=== PATIENT | female | born 1975 | race Caucasian/White ===

== ENCOUNTER 2017-06-05 12:34 | Emergency (ER) | payer SELFPAY ==
[2017-06-05 12:39] VITALS: BP 142/96
--- NOTE | 2017-06-05 13:15 | DR.URIAD ---
HPI - Time Seen Time seen: 13:10 - PCP Primary Care Physician: LESLIE - HPI Comment HPI Comment: WORSE TODAY. - Complaint Chief Complaint Doctors Comments: GENERALIZE BODYACHES, HEADACHE, SORETHRAT AND DISRRHEA TIMES 4 DAYS. Chief Complaint:: PT. C/O SORE THROAT, HEADACHE, FEVER, BODY ACHES, & DIARRHEA. - Reviewed Nurses Notes Reviewed: Yes - Source History Provided: Patient - Mode of Arrival Mode of Arrival: Ambulatory - Timing Onset of Chief Complaint: 06/01/17 - Context Recent Treated Infections: None History of Respiratory: None - Quality Quality of Cough: Productive, Yellow Rhinorrhea: None Shortness of Breath: none - Associated Signs and Symptoms Other Signs and Symptoms: Cough, Diarrhea, Myalgias, Sore Throat PMH - PMH Past Medical History: Yes Past Medical History: Hypertension, Hyperthyroidism Past Medical History Comment: GRAVES DISEASE Past Surgical History: Yes Surgical History: Cholecystectomy, [employer] Surgery, Tonsillectomy Past Surgical History Comment: TUBAL LIGATION, D&C, TUMMY TUCK - Family History History of Family Medical Conditions: No - Social History Does patient currently use any type of tobacco product: Yes Have you used tobacco products in the last 12 months: Yes Type of Tobacco Use: Cigarettes Does any household member use tobacco: No Alcohol Use: None Do you use any recreational Drugs:: No Lives With: Alone Lives Where: Home - infectious screening In the last 2 months have you had wt loss of >10#?: NO Have you had fever, night sweats or hemotysis?: No Have you traveled outside the country in the last 6 months?: No Isolation: Standard ROS - Review of Systems Constitutional: Fever, Weakness, Fatigue. negative: Chills Eyes: negative: Eye Pain, Discharge ENTM: Nose Discharge, Nose Congestion, Throat Pain. negative: Ear Pain Respiratoy: Productive Cough, Short of Breath. negative: Wheezing, Hemoptysis Cardiovascular: No Symptoms Reported Gastrointestinal/Abdominal: Diarrhea Genitourinary: No Symptoms Reported Neurological: Headache Musculoskeletal: Muscle Pain Integumentary: No Symptoms Reported Hematologic/Lymphatic: No Symptoms Reported Endocrine: No Symptoms Reported All Other Systems: Reviewed and Negative PE - Vital Signs Vitals: Temperature 98.6 F Pulse Rate 98 Respiratory Rate 20 Blood Pressure 142/96 O2 Sat by Pulse Oximetry 100 - General Limitations: No Limitations General Appearance: Alert - Head Head Exam: Normal Inspection - Eyes Eye exam: Normal Appearance - ENT ENT Exam: Normal External Ear Exam External Ear Exam: Normal External Inspection TM/Canal Exam: Bilateral Bulging Nose Exam: Normal Nose Exam Mouth Exam: Normal Inspection Throat Exam: Tonsillar Erythema, Tonsillomegaly. negative: Tonsillar Exudate - Neck Neck Exam: Trachea Midline - Chest Chest Inspection: Symmetric Chest Wall Rise - Respiratory Respiratory Exam: Normal Lung Sounds Bilat Respiratory Exam: Bilateral Clear to Auscultation - Cardiovascular Cardiovascular Exam: Regular Rate, Normal Rhythm, Normal Heart Sounds - Abdominal Exam Abdominal Exam: Normal Bowel Sounds, Soft. negative: Tenderness - Extremeties Extremities Exam: Normal Inspection - Back Back Exam: Normal Inspection - Neurologic Neurological Exam: Alert, Oriented X3 - Psychiatric Psychiatric Exam: Normal Affect, Normal Mood ROR - Labs Reviewed Laboratory: Influenza Type A (PCR) Negative (NEGATIVE) 06/05/17 13:43 Influenza Type B (PCR) Negative (NEGATIVE) 06/05/17 13:43 S. pyogenes (TEM-PCR) Not detected (NOT DETECT) 06/05/17 13:43 - Discharge Plan Disposition: 01 HOME, SELF-CARE Condition: Stable Prescriptions: Amoxicillin [Amoxil 875 mg] 875 mg PO TID #30 tab Cetirizine HCl [Zyrtec Tab 10 mg] 10 mg PO DAILY #30 tab Ibuprofen [MOTRIN TAB 600 MG *] 600 mg PO TID PRN #20 tab PRN Reason: Pain/Inflammation - Follow ups/Referrals Follow ups/Referrals: NFD,None [Primary Care Provider] - 3 days - Instructions Instructions: Tonsillitis, [id number], Sinusitis, Adult, [id number] Additional Instructions: RETURN TO ED IF WORSE.
== END 2017-06-05 14:51 | disposition home or self-care (01) ==
LOC: ER 13:03
DX: J01.80 Other acute sinusitis (principal); J02.9 Acute pharyngitis, unspecified
CPT/HCPCS: 87502; 87651; 99282